=== PATIENT | female | born 1955 | race African-American/Black ===

== ENCOUNTER 2019-05-29 05:44 | Inpatient (IN) ==
[2019-05-20 16:06] LABS: BASO# 0.13 X1000 (0.0-0.2); BASO% 1.4 % (0.0-0.8); EOS# 0.19 X1000 (0.0-0.7); HEMATOCRIT 43.2 % (37.0-47.0); HEMOGLOBIN 14.3 g/dL (12.0-16.0); IMM GRAN# 0.06 X1000 (0.0-0.04); IMM GRAN% 0.6 % (0.0-0.5); LYMPH# 2.89 X1000 (1.2-3.4); LYMPH% 31.2 % (20.5-51.1); MCH 29.7 PG (27-31); MCHC 33.1 g/dL (33-37); MCV 89.6 FL (81-99); MONO# 0.63 X1000 (0.11-0.59); MONO% 6.8 % (1.7-9.3); MPV 9.9 FL (7.4-10.4); NEUT# 5.37 X1000 (1.4-6.5); PLT 334 X1000 (130-400); RBC 4.82 XMIL (4.2-5.4); RDW 12.8 % (11.5-14.5); WBC 9.27 X1000 (4.8-10.8)
[2019-05-20 16:20] LABS: AGAP 11; BUN 11 mg/dL (8-22); CALCIUM 9.9 mg/dL (8.8-10.2); CHLORIDE 103 mmol/L (98-107); COSMO 273; CREATININE 0.7 mg/dL (0.5-0.9); ESTIMATED GFR > 60; GLUCOSE 102 mg/dL (70-104); POTASSIUM 3.5 mmol/L (3.5-5.1); SODIUM 137 mmol/L (136-145); TCO2 23 mmol/L (25-35)
[2019-05-29] MEDS ORDERED: REGLAN ONE (06:40)
[2019-05-29] MEDS ORDERED: KEFZOL 1 GM/D5W 2 GM/100 ML IVPB ONE (06:40)
[2019-05-29] MEDS ORDERED: LR 1,000 ML ONE (06:40)
[2019-05-29] MEDS ORDERED: PEPCID ONE (06:40)
[2019-05-29] MEDS ORDERED: VERSED ONE (07:10)
[2019-05-29] MEDS ORDERED: DIPRIVAN 1% ONE (07:23)
[2019-05-29] MEDS ORDERED: SUFENTA ONE (07:26)
[2019-05-29] MEDS ORDERED: EXPAREL 1.3% ONE (08:05)
[2019-05-29] MEDS ORDERED: MARCAINE 0.25% ONE (08:05)
[2019-05-29 08:42] LABS: URINE SOURCE CATH
[2019-05-29 08:47] LABS: BILIRUBIN URINE NEGATIVE (NEGATIVE); BLOOD URINE NEGATIVE (NEGATIVE); COLOR YELLOW; GLUCOSE URINE NEGATIVE (NEGATIVE); KETONE URINE NEGATIVE (NEGATIVE); LEUKOCYTES URINE NEGATIVE (NEGATIVE); NITRITE URINE NEGATIVE (NEGATIVE); PH URINE 7.5; PROTEIN URINE NEGATIVE (NEGATIVE); SP GRAVITY URINE 1.009; TURBIDITY URINE CLEAR (CLEAR); UROBILINOGEN URINE NORMAL (NORMAL)
[2019-05-29 08:48] LABS: UR EPITHELIAL CELLS <10 /HPF (<10); URINE BACTERIA NEGATIVE /HPF; URINE RBC <10 /HPF (<10); URINE WBC <10 /HPF (<10)
[2019-05-29] MEDS ORDERED: OFIRMEV 1000 MG/ISOTONIC SOLN 1,000 MG/100 ML BOTTLE ONE (11:19)
[2019-05-29] MEDS: DILAUDID ONE ×2 (11:32→11:43)
[2019-05-29] MEDS ORDERED: ZOFRAN IV PRN (12:30)
[2019-05-29] MEDS: OFIRMEV 1000 MG/ISOTONIC SOLN 1,000 MG/100 ML BOTTLE IV SCH ×2 (12:30→19:35)
[2019-05-29] MEDS: REGLAN IV SCH ×2 (12:30→19:36)
[2019-05-29] MEDS: LR 1,000 ML IV SCH (12:35)
[2019-05-29] MEDS: DILAUDID IV PRN ×3 (15:34→23:09)
--- NOTE | 2019-05-29 17:58 | OPERATIVE NOTE ---
PROCEDURE DATE: 05/29/2019 PREOPERATIVE DIAGNOSES: 1. Distal pancreatic solid mass. 2. Left adrenal nodule. POSTOPERATIVE DIAGNOSIS: 1. Distal pancreatic solid mass. 2. Left adrenal nodule. PROCEDURE PERFORMED: 1. Distal pancreatectomy with splenectomy. 2. Left adrenalectomy. 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 Lopez was present for the entirety of the case. He facilitated exposure and identification of anatomy and resection distorted by the malignant process. OPERATIVE FINDINGS: There was a nodule and a solid mass in the distal aspect of the pancreas distal to the mesenteric vessels. They appeared normal. There is no evidence of liver metastasis or peritoneal metastasis. There were some omental adhesions in the pelvis. There were easily mobilized. There was a nodule in the left adrenal gland. OPERATIVE NOTE: Risks, benefits and alternatives were discussed with the patient and she consented to the procedure, seen preoperatively. Surgical site was confirmed. Her splenectomy vaccines were also confirmed. She was taken to the operating room, placed supine position and general anesthesia was induced. A Bolton catheter and NG tube were placed. Abdominal wall block as performed with Exparel by our anesthesia colleagues. For details please see previously dictated operative note. Abdomen was prepped with chlorhexidine solution and draped in the usual fashion. After time-out, a subcostal incision was made 2 fingerbreadths below the level of the costal margin, carried down to the muscle and the abdomen is entered open controlled fashion. We mobilized the falciform ligament. At this point, we mobilized the omentum and eviscerated this and entered the lesser sac, taking the greater omentum off the transverse colon, protecting the colon. We were able do this relatively easily. We took down the splenic flexure of the colon as well. An upper hand retractor was then placed and we gained good exposure. The pancreatic mass was easily identified. At this point, we mobilized the spleen's lateral attachments, mobilizing this up, including the tail of the pancreas and the body of the pancreas until an area that was felt to be proximal to the nodule. This did not encroach upon the mesenteric vessels. Using 2 fires of a gold load 60 mm Endo-BLANQUITA, 1 to divide the pancreas and 1 to divide the splenic artery, we removed the specimen, passing it off. We then used horizontal mattress-type 3-0 Prolene sutures to reinforce the cut edge of the pancreas. There was no bleeding. Good closure of the splenic artery. At this point, we turned our attention to the adrenal gland. It was easily identifiable. We incised the capsule overlying, completely removed using a combination of electrocautery and LigaSure device, removing the adrenal gland in its entirety, protecting the kidney and the renal vein. Hemostasis was noted. We copiously irrigated the abdomen. A Jeffrey drain was placed in a stab incision into the splenic fossa next to the cut edge of the pancreas. We had adequate gross margin on her specimen. The tongue of omentum was placed over the end of the pancreas and the remaining was draped anteriorly. The colon was placed as well as small bowel in neutral position. The colon remained well perfused at the end the case. Stomach was placed. NG tube was confirmed. All lap counts were correct. We then closed the anterior and posterior layers of the fascia with a #1 running looped PDS suture, irrigating the superficial wounds. Surgical clips were used to close the skin. She tolerated it well. The counts were correct. I spoke with the family via phone at the end the case. A gauze Medipore dressing was applied. cc: Nj Young MD
[2019-05-29] MEDS: PERIDEX MT SCH (20:38)
[2019-05-30] MEDS: REGLAN IV SCH ×4 (00:18→17:34)
[2019-05-30] MEDS: OFIRMEV 1000 MG/ISOTONIC SOLN 1,000 MG/100 ML BOTTLE IV SCH ×2 (00:19→05:48)
[2019-05-30] MEDS: DILAUDID IV PRN ×6 (02:51→20:48)
[2019-05-30] MEDS: LR 1,000 ML IV SCH ×5 (02:53→20:52)
[2019-05-30 07:15] LABS: BASO# 0.03 X1000 (0.0-0.2); BASO% 0.2 % (0.0-0.8); HEMATOCRIT 35.4 % (37.0-47.0); HEMOGLOBIN 11.9 g/dL (12.0-16.0); IMM GRAN# 0.09 X1000 (0.0-0.04); IMM GRAN% 0.5 % (0.0-0.5); LYMPH# 1.81 X1000 (1.2-3.4); LYMPH% 9.4 % (20.5-51.1); MCH 29.7 PG (27-31); MCHC 33.6 g/dL (33-37); MCV 88.3 FL (81-99); MONO% 8.3 % (1.7-9.3); MPV 10.1 FL (7.4-10.4); NEUT# 15.76 X1000 (1.4-6.5); NEUT% 81.6 % (42.2-75.2); PLT 356 X1000 (130-400); RBC 4.01 XMIL (4.2-5.4); RDW 12.6 % (11.5-14.5); WBC 19.29 X1000 (4.8-10.8)
[2019-05-30 07:21] LABS: AGAP 17; ALB/GLOB RATIO 1.1; ALBUMIN 3.4 g/dL (3.5-5.0); ALKALINE PHOSPHATASE 106 U/L (32-104); BUN 9 mg/dL (8-22); CALCIUM 8.9 mg/dL (8.8-10.2); CHLORIDE 99 mmol/L (98-107); COSMO 277; CREATININE 0.7 mg/dL (0.5-0.9); ESTIMATED GFR > 60; GLUCOSE 183 mg/dL (70-104); GOT 27 U/L (10-30); GPT 23 U/L (10-36); POTASSIUM 3.9 mmol/L (3.5-5.1); SODIUM 137 mmol/L (136-145); TCO2 21 mmol/L (25-35); TOTAL BILIRUBIN 0.47 mg/dL (0.20-1.00); TOTAL PROTEIN 6.5 g/dL (6.3-8.3)
[2019-05-30] MEDS: MAG-OX PO SCH (09:28)
[2019-05-30] MEDS: PERIDEX MT SCH ×2 (09:29→20:49)
[2019-05-30] MEDS: LOVENOX SUBQ SCH (09:29)
--- NOTE | 2019-05-30 12:53 | GENERAL SURGERY PROGRESS NOTE ---
DATE: 05/30/2019 SUBJECTIVE: No events overnight. No fevers. No tachycardia. OBJECTIVE: Vital signs: Blood pressure 150/67. She is high 90s on room air. General: She is in the restroom currently, she seems to be moving well. Her NG tube is in place, AIDEN drain is serosanguineous. LABORATORY: White count appropriate increased to 19 after splenectomy, hematocrit is 35., creatinine 0.7. LFTs are normal. Mild elevation of alkaline phosphatase. ASSESSMENT AND PLAN: This is a 63-year-old female status post distal pancreatectomy and splenectomy. She is doing well. We will keep her NG tube today and plan on removing it tomorrow. She is on prophylactic Lovenox, Dilaudid for pain, LR at 125, as well as low- dose Reglan. cc: Nj Young MD MTDD
[2019-05-31] MEDS: DILAUDID IV PRN ×7 (00:02→21:36)
[2019-05-31] MEDS: REGLAN IV SCH ×5 (00:11→23:58)
[2019-05-31] MEDS: LR 1,000 ML IV SCH ×3 (06:45→23:58)
--- NOTE | 2019-05-31 07:39 | EKG Report ---
Test Performed on : 05/31/2019 07:29:02 AM Test Reason : tachycardia Blood Pressure : / mmHG Vent. Rate : 115 BPM Atrial Rate : 115 BPM P-R Int : 184 ms QRS Dur : 080 ms QT Int : 320 ms P-R-T Axes : 051 019 002 degrees QTc Int : 442 ms Sinus tachycardia. Possible Left atrial enlargement Cannot rule out Inferior infarct (cited on or before 28-MAR-2019) Abnormal ECG When compared with ECG of 28-MAR-2019 11:01, (Unconfirmed) Vent. rate has increased BY 56 BPM Questionable change in initial forces of Inferior leads ST no longer elevated in Lateral leads Confirmed by Justina ZHU, Shravan Lynn ([id number]) on 05/31/2019 9:11:41 AM
[2019-05-31 08:32] LABS: AGAP 10; BUN 8 mg/dL (8-22); CALCIUM 9.3 mg/dL (8.8-10.2); CHLORIDE 105 mmol/L (98-107); COSMO 282; CREATININE 0.5 mg/dL (0.5-0.9); ESTIMATED GFR > 60; GLUCOSE 172 mg/dL (70-104); MAGNESIUM 1.8 mg/dL (1.5-2.7); POTASSIUM 3.8 mmol/L (3.5-5.1); SODIUM 140 mmol/L (136-145); TCO2 25 mmol/L (25-35)
[2019-05-31] MEDS: MAG-OX PO SCH (10:34)
[2019-05-31] MEDS: LOVENOX SUBQ SCH (10:34)
[2019-05-31] MEDS: PERIDEX MT SCH ×2 (10:34→23:59)
--- NOTE | 2019-05-31 17:39 | GENERAL SURGERY PROGRESS NOTE ---
DATE: 05/31/2019 SUBJECTIVE: Low-grade tachycardia overnight. Hemodynamically, she has otherwise been stable. OBJECTIVE: On room air saturating in the 90s. Abdomen is soft. AIDEN drain is serosanguineous. Her abdomen is soft. She is having bowel function. We removed her NG tube and Bolton catheter yesterday. She is voiding and doing well. Her electrolytes look okay. Creatinine 0.5. Urine output has been good. EKG showed low-grade sinus tachycardia. Troponins were negative. ASSESSMENT AND PLAN: A 63-year-old female status post distal pancreatectomy, splenectomy with adrenalectomy. She is doing well. I do not see any electrolyte issues. We will continue to follow her closely. Keep her drain for now. We have given her some sips of liquids and gradually advance her diet over the next 24-48 hours. cc: Nj Young MD
[2019-05-31] MEDS: PROTONIX IV SCH (18:22)
[2019-05-31 23:46] LABS: BASO# 0.18 X1000 (0.0-0.2); BASO% 0.7 % (0.0-0.8); EOS# 0.17 X1000 (0.0-0.7); EOS% 0.7 % (0.0-10.0); HEMATOCRIT 28.2 % (37.0-47.0); HEMOGLOBIN 9.2 g/dL (12.0-16.0); IMM GRAN# 0.28 X1000 (0.0-0.04); IMM GRAN% 1.1 % (0.0-0.5); LYMPH# 3.49 X1000 (1.2-3.4); MCH 30.1 PG (27-31); MCHC 32.6 g/dL (33-37); MCV 92.2 FL (81-99); MONO# 2.81 X1000 (0.11-0.59); MONO% 11.2 % (1.7-9.3); MPV 9.7 FL (7.4-10.4); NEUT# 18.07 X1000 (1.4-6.5); NEUT% 72.3 % (42.2-75.2); PLT 370 X1000 (130-400); RBC 3.06 XMIL (4.2-5.4); RDW 13.1 % (11.5-14.5)
[2019-06-01] MEDS: DILAUDID IV PRN ×6 (00:45→21:37)
[2019-06-01] MEDS: LR 1,000 ML IV SCH (06:28)
[2019-06-01] MEDS: REGLAN IV SCH ×4 (06:28→23:52)
[2019-06-01] MEDS: PERIDEX MT SCH ×2 (10:24→23:52)
[2019-06-01] MEDS: MAG-OX PO SCH (10:24)
[2019-06-01] MEDS: LOVENOX SUBQ SCH (10:24)
[2019-06-01] MEDS ORDERED: LR 1,000 ML IV SCH (10:48)
--- NOTE | 2019-06-01 11:03 | GENERAL SURGERY PROGRESS NOTE ---
DATE: 06/01/2019 SUBJECTIVE: Ms. Silva is now 3 days after distal pancreatectomy. OBJECTIVE: She is afebrile today with a T-max of 99.6 degrees earlier this morning, heart rate is 107, blood pressure 149/66. She says she is hungry. She has passed some flatus. White count yesterday was 25,000. PLAN: The plan today will be to give her clear liquids and cut her IV rate down to 90. We will recheck her labs tomorrow. Her leukocytosis may be response to her splenectomy. cc: MD Nj Siu MD
[2019-06-01] MEDS: PROTONIX IV SCH (17:52)
[2019-06-02] MEDS: DILAUDID IV PRN ×7 (01:03→23:16)
[2019-06-02] MEDS: REGLAN IV SCH ×3 (05:33→18:53)
[2019-06-02 07:57] LABS: BASO# 0.14 X1000 (0.0-0.2); BASO% 0.7 % (0.0-0.8); EOS% 2.4 % (0.0-10.0); HEMATOCRIT 26.1 % (37.0-47.0); HEMOGLOBIN 8.7 g/dL (12.0-16.0); IMM GRAN# 0.52 X1000 (0.0-0.04); IMM GRAN% 2.5 % (0.0-0.5); LYMPH# 2.85 X1000 (1.2-3.4); LYMPH% 13.5 % (20.5-51.1); MCH 30.5 PG (27-31); MCHC 33.3 g/dL (33-37); MCV 91.6 FL (81-99); MONO# 2.69 X1000 (0.11-0.59); MONO% 12.7 % (1.7-9.3); MPV 9.9 FL (7.4-10.4); NEUT# 14.42 X1000 (1.4-6.5); NEUT% 68.2 % (42.2-75.2); PLT 487 X1000 (130-400); RBC 2.85 XMIL (4.2-5.4); WBC 21.12 X1000 (4.8-10.8)
[2019-06-02 08:19] LABS: AGAP 10; BUN 5 mg/dL (8-22); CALCIUM 9.3 mg/dL (8.8-10.2); CHLORIDE 103 mmol/L (98-107); COSMO 271; CREATININE 0.5 mg/dL (0.5-0.9); ESTIMATED GFR > 60; GLUCOSE 136 mg/dL (70-104); POTASSIUM 3.4 mmol/L (3.5-5.1); SODIUM 136 mmol/L (136-145); TCO2 23 mmol/L (25-35)
[2019-06-02] MEDS: LOVENOX SUBQ SCH (09:16)
[2019-06-02] MEDS: MAG-OX PO SCH (09:16)
[2019-06-02] MEDS: PERIDEX MT SCH (09:16)
--- NOTE | 2019-06-02 10:16 | GENERAL SURGERY PROGRESS NOTE ---
DATE: 06/02/2019 SUBJECTIVE: She is now 4 days after distal pancreatectomy. OBJECTIVE: She is afebrile. Heart rate 107, blood pressure 137/71. She is tolerating some p.o. intake. She says she is passing flatus easily. Intake 2974, output 1825. Drain is serous, has 25 mL of output. LABORATORY DATA: White count is down to 21,000, hemoglobin 8.7, hematocrit 26. PLAN: To advance her to full liquids. We will cut her IV rate down to 60. cc: MD Nj Siu MD
[2019-06-02] MEDS: LR 1,000 ML IV SCH (12:28)
[2019-06-02] MEDS: SODIUM CHLORIDE 0.9% INJ SCH (17:36)
[2019-06-02] MEDS: PROTONIX IV SCH (17:36)
[2019-06-03] MEDS: PERIDEX MT SCH ×3 (00:34→21:48)
[2019-06-03] MEDS: REGLAN IV SCH ×4 (00:34→17:36)
[2019-06-03] MEDS: DILAUDID IV PRN ×6 (03:02→21:50)
[2019-06-03 07:00] LABS: BASO# 0.04 X1000 (0.0-0.2); BASO% 0.2 % (0.0-0.8); EOS# 0.49 X1000 (0.0-0.7); EOS% 2.6 % (0.0-10.0); HEMATOCRIT 26.7 % (37.0-47.0); HEMOGLOBIN 8.8 g/dL (12.0-16.0); LYMPH# 3.35 X1000 (1.2-3.4); LYMPH% 17.8 % (20.5-51.1); MCH 30.1 PG (27-31); MCV 91.4 FL (81-99); MONO# 2.78 X1000 (0.11-0.59); MONO% 14.7 % (1.7-9.3); MPV 9.3 FL (7.4-10.4); NEUT# 12.19 X1000 (1.4-6.5); NEUT% 64.7 % (42.2-75.2); PLT 546 X1000 (130-400); RBC 2.92 XMIL (4.2-5.4); RDW 12.8 % (11.5-14.5); WBC 18.85 X1000 (4.8-10.8)
[2019-06-03] MEDS: LOVENOX SUBQ SCH (09:24)
[2019-06-03] MEDS: MAG-OX PO SCH (09:24)
[2019-06-03] MEDS: LR 1,000 ML IV SCH (09:24)
--- NOTE | 2019-06-03 11:06 | GENERAL SURGERY PROGRESS NOTE ---
DATE: 06/03/2019 SUBJECTIVE: Doing well. She is having bowel function. Pain is controlled. AIDEN drain has minimal serosanguineous output. No fevers. She is tolerating full liquids. Occasional low-grade tachycardia, for the most part in the 90s, low 100s on room air. I reviewed her labs. White count is 18, hematocrit is 26. ASSESSMENT/PLAN: A 63-year-old female status post distal pancreatectomy and splenectomy. We will send her drain for amylase today, and advance her diet to soft. Plans for possibly home tomorrow. cc: Nj Young MD
[2019-06-03] MEDS: SODIUM CHLORIDE 0.9% INJ SCH (17:36)
[2019-06-03] MEDS: PROTONIX IV SCH (17:36)
[2019-06-03 17:46] LABS: AMYLASE BODY FLUID 3572 U/L
[2019-06-04] MEDS: REGLAN IV SCH ×3 (00:18→12:27)
[2019-06-04] MEDS: DILAUDID IV PRN ×6 (01:25→21:37)
[2019-06-04] MEDS: LR 1,000 ML IV SCH (10:19)
[2019-06-04] MEDS: LOVENOX SUBQ SCH (10:19)
[2019-06-04] MEDS: MAG-OX PO SCH (10:19)
[2019-06-04] MEDS: PERIDEX MT SCH ×2 (10:19→21:37)
--- NOTE | 2019-06-04 16:09 | GENERAL SURGERY PROGRESS NOTE ---
DATE: 06/04/2019 SUBJECTIVE: Doing well. Pain is controlled. She is ambulating. She is tolerating a diet. Her bowels are functioning. AIDEN drain output has been minimal and it has not even been emptied today, there is just approximately 20 to 30 mL of dark, maroonish color. LABS: Labs yesterday showed a white count down to 18, hematocrit 26. Her drain amylase was 3572. ASSESSMENT AND PLAN: A 63-year-old female status post distal pancreatectomy and splenectomy with left adrenalectomy. She has a biochemical leak. Her drain output is minimal. We will keep her drain for now. She is overall doing well. She is on prophylactic Lovenox and proton pump inhibitor. We will stop her Reglan and plan for her to possibly go home tomorrow. cc: Nj Young MD
[2019-06-04] MEDS: PROTONIX IV SCH (17:47)
[2019-06-04] MEDS: SODIUM CHLORIDE 0.9% INJ SCH (17:47)
[2019-06-05] MEDS: LR 1,000 ML IV SCH (01:11)
[2019-06-05] MEDS: DILAUDID IV PRN ×3 (01:12→15:04)
[2019-06-05] MEDS: MAG-OX PO SCH (09:09)
[2019-06-05] MEDS: PERIDEX MT SCH (09:09)
[2019-06-05] MEDS: LOVENOX SUBQ SCH (09:09)
[2019-06-05 15:12] VITALS: BP 147/71
--- NOTE | 2019-06-05 17:05 | DISCHARGE SUMMARY ---
DATE: 06/05/2019 PREOPERATIVE DIAGNOSIS: Distal pancreatic mass, left adrenal nodule. POSTOPERATIVE DIAGNOSIS: Distal pancreatic mass, left adrenal nodule. PROCEDURE PERFORMED DURING ADMISSION: Distal pancreatectomy and splenectomy and left adrenalectomy. Anesthesia general with a TAP block. DATE OF ADMISSION: 05/29/2019. DATE OF DISCHARGE: 06/05/2019. HISTORY OF PRESENT ILLNESS: This 63-year-old female was incidentally found to have a distal pancreatic mass concerning for adenocarcinoma. She also had a nonfunctional left adrenal adenoma. Resection was indicated. HOSPITAL COURSE: Patient was admitted on the day of the procedure for the above procedure. For details, please see dictated operative note. Postoperatively, she was managed well. She had prompt return of bowel function. She is on Reglan, Protonix and PPI. Her NG tube was removed on postoperative day 1. Her incisions remained okay. She voided after the Bolton catheter was removed and her pain was well controlled. Her diet was gradually advanced and she tolerated this well. She did have her drain sent for amylase that was high at 3,572, but the output remained 20- 30 mL per day, and as such we continued the drain and felt she was safe for discharge. She was on prophylactic Lovenox and PPI throughout her stay. She did receive splenic vaccinations as an outpatient prior to her surgery. She was felt safe for discharge. FOLLOWUP: With me in a week for staple removal and drain removal. DIET: GI soft. DISCHARGE INSTRUCTIONS: Discharge instructions were given in written and verbal format. MEDICATIONS: [place] and [place], and she will continue taking her home medications. RESTRICTIONS: Avoid heavy lifting greater than 10 pounds. cc: Nj Young MD
== END 2019-06-05 17:06 | disposition home or self-care (01) | DRG 406 ==
LOC: SURHOLD 05:44 → 4N 08:55
PROVIDERS: ADMIT Surgery; ATTEND Surgery